=== PATIENT | female | born 1975 | race African-American/Black ===

== ENCOUNTER 2021-03-04 11:19 | Emergency (ER) | payer MEDICAID ==
[~2021-03-04] VITALS: Ht 165.1 cm; Wt 68.0 kg
[2021-03-04] MEDS ORDERED: KETOROLAC 15MG/ML VIAL IV ONE (13:00)
[2021-03-04] MEDS ORDERED: CLIN300C12 MT (13:03)
[2021-03-04 13:05] VITALS: BP 115/78
[2021-03-04] MEDS ORDERED: OXYC-100 MT ×2 (13:10→13:40)
== END 2021-03-04 13:55 | disposition home or self-care (01) ==
LOC: ER 11:19
DX: K04.7 Periapical abscess without sinus (principal); Z87.891 Personal history of nicotine dependence; Z88.0 Allergy status to penicillin
CPT/HCPCS: 81025; 96374; 99283; J1885

== ENCOUNTER 2021-03-10 15:46 | Emergency (ER) | payer MEDICAID ==
[~2021-03-10] VITALS: Ht 165.1 cm; Wt 66.0 kg
[~2021-03-10 15:46] MED LIST: CLIN300C12 MT; OXYC-100 MT
[2021-03-10] MEDS ORDERED: IBUP-2029 PO (18:08)
[2021-03-10] MEDS ORDERED: HYDR-4001 PO (18:08)
[2021-03-10] MEDS ORDERED: AMOX-424 PO (18:08)
[2021-03-10 18:14] VITALS: BP 128/70
== END 2021-03-10 18:14 | disposition home or self-care (01) ==
LOC: ER 15:46
DX: K08.89 Other specified disorders of teeth and supporting structures (principal); K04.7 Periapical abscess without sinus
CPT/HCPCS: 99283